=== PATIENT | female | born 1955 | race Caucasian/White ===

== ENCOUNTER → 2017-08-20 | Outpatient (CLI) | payer OTHER ==
[2017-05-08 12:58] VITALS: BMI 28.3
[~2017-08-20] MED LIST: ALBU8.5H12 IH; CETI10CA8 PO; CIPR-344 PO; CLON0.5T66 PO; CYC10 PO; DOXY-179 PO; FEXO30TA36 PO; FLUT12HF2 IH; FLUT16SP19; FLUT16SP20 NS; FLUT1DIS28 IH; HCTZ25 PO; HYDR-3078 PO; IBUP600T22 PO; MECL25TA9 PO; MONT10TA PO; MULT1TAB64 PO; OLO2ODPT OU; ONDA4TAB97 PO; PER PO; PROL80 PO; PROM-110 PO; PROP20SO PO; SCOT TD; TRAZ-156 PO; VEN75 PO; VORT20TA
== END ==
LOC: AUD 13:00
PROVIDERS: ATTEND Otolaryngology
DX: H93.13 Tinnitus, bilateral (principal); R42 Dizziness and giddiness
CPT/HCPCS: 92557; 92570

== ENCOUNTER → 2018-03-11 | Outpatient (CLI) | payer OTHER ==
[2017-05-08 12:58] VITALS: BMI 28.3
[~2018-03-11] MED LIST changes: +ASPI81TA94 PO; +ATOR20TA22 PO; +FES4PT PO; +LOSA50TA72 PO; +MV M PO; -TRAZ-156 PO; +TRAZ50TA34 PO; +UBID50TA3 PO; +[UNRECOGNIZED DRUG - CODE] PO
--- NOTE | 2018-03-11 09:47 | RADIOLOGY IMAGING REPORT ---
FACILITY: [facility] PATIENT NAME: Grace Mera : 1955 MR: [id number] V: [id number] EXAM DATE: ORDERING PHYSICIAN: JOB GOODWIN TECHNOLOGIST: Location: [facility] Patient: Grace Mera : 1955 Visit/Account:[id number] Date of Sevice: 03/11/2018 GALLBLADDER HISTORY: Ostium vomiting x2 months COMPARISON: None. FINDINGS: Gallbladder: Multiple large shadowing stones seen within the gallbladder. The gallbladder wall does not appear thickened measuring 2.8 mm. There was a positive Cifuentes sign by technologist notation Liver: Negative. Common duct: Normal, 3.9 mm diameter. Pancreas: Partially obscured by bowel, visualized aspects unremarkable. Right kidney: Right kidney appears unremarkable measuring 9.9 cm in length Upper abdominal aorta and IVC: Patent. Ascites: None visualized. IMPRESSION: Cholelithiasis and positive Cifuentes sign although no evidence of gallbladder wall thickening or biliar y ductal dilatation Report Dictated By: Alicia Lazar MD at 03/11/2018 9:42 AM Report E-Signed By: Alicia Lazar MD at 03/11/2018 9:44 AM WSN:[email or web address]
== END ==
LOC: US 01:56
PROVIDERS: ATTEND Nurse Practitioner Family
DX: K80.20 Calculus of gallbladder without cholecystitis without obstruction (principal); R19.8 Other specified symptoms and signs involving the digestive system and abdomen
CPT/HCPCS: 76705

== ENCOUNTER 2018-03-19 00:51 | Observation (INO) | payer OTHER ==
[~2018-03-19] VITALS: Ht 165.1 cm; Wt 73.5 kg
[2018-03-19] VITALS (15 sets, daily range): BP systolic 93–125; BP diastolic 51–74
[~2018-03-19 00:51] MED LIST changes: +ALBU8.5H IH; +ASPI-1471 PO; +FLUT15.88; +HYDR-2966 PO; +SCOP1PAT16 TD; +SUCR1TAB85 PO; +VORTIOXETINE PO
[2018-03-19 09:06] LABS: PLATELET COUNT, AUTOMATED 343 K/uL (150-450)
--- NOTE | 2018-03-19 10:03 | EKG ---
[place] [facility] [place] NAME: ELVIA HODGES : [id number] MR: [id number] V: [id number] EXAM DATE: ORDERING PHYSICIAN: THERESE DEL ANGEL TECHNOLOGIST: RICARDA Pedersen Reason : PREOP Blood Pressure : / mmHG Vent. Rate : 051 BPM Atrial Rate : 051 BPM P-R Int : 160 ms QRS Dur : 082 ms QT Int : 428 ms P-R-T Axes : 043 017 025 degrees QTc Int : 394 ms Sinus bradycardia Otherwise normal ECG No previous ECGs available Confirmed by NIKOLAY AMATO ([id number]) on 03/19/2018 3:43:21 PM Referred By: JOCELYN Confirmed By:NIKOLAY AMATO
[2018-03-19] MEDS ORDERED: DEXAMETHASONE SOD PHOS 10MG/ML ONE (10:13)
[2018-03-19] MEDS ORDERED: ONDANSETRON 4 MG/2 ML VIAL ONE (10:13)
[2018-03-19] MEDS ORDERED: fentaNYL CITR 100 MCG/2 ML AMP ONE ×3 (10:13→16:14)
[2018-03-19] MEDS ORDERED: PROPOFOL EMUL(*) 10MG/ML 20 ML 20 ML ONE (10:13)
[2018-03-19] MEDS ORDERED: MIDAZOLAM 2 MG/2 ML VIAL ONE (10:14)
[2018-03-19] MEDS ORDERED: PREGABALIN 150 MG CAPSULE PO ONE (11:00)
[2018-03-19] MEDS ORDERED: metroNIDAZOLE* 500MG/100ML BAG 100 ML IVPB ONE (11:00)
[2018-03-19] MEDS ORDERED: FAMOTIDINE 20 MG TAB PO ONE (11:00)
[2018-03-19] MEDS ORDERED: VANCOMYCIN 1 GM ADDVIAL 1 GM in NS(*) 0.9% 250 ML ADDVAN BAG 250 ML IVPB ONE (11:00)
[2018-03-19] MEDS ORDERED: NORMOSOL R SOLN(*) 1000 ML BAG 1,000 ML IV PRN (11:00)
[2018-03-19] MEDS ORDERED: MIDAZOLAM 2 MG/2 ML VIAL IVP PRN (11:00)
[2018-03-19] MEDS ORDERED: LIDOCAINE/SOD BICARB 8.4% SYR ID ONE (11:00)
[2018-03-19] MEDS ORDERED: ACETAMINOPHEN 500 MG TAB PO ONE (11:00)
[2018-03-19] MEDS ORDERED: INDOCYANINE GREEN 25 MG VIAL IVP ONE (11:00)
[2018-03-19] MEDS ORDERED: ROPIVACAINE 0.5% 20 ML VIAL ONE (12:22)
[2018-03-19] MEDS ORDERED: ROCURONIUM BROM 10 MG/ML 5 ML ONE (13:30)
[2018-03-19] MEDS ORDERED: SUGAMMADEX SOD 500 MG/5 ML SDV ONE (14:31)
[2018-03-19] MEDS ORDERED: NS(*) 0.9% 1000 ML BAG 1,000 ML IV PRN (15:01)
[2018-03-19] MEDS ORDERED: ONDANSETRON 4 MG/2 ML VIAL IVP PRN (15:05)
[2018-03-19] MEDS ORDERED: clonazePAM 0.5 MG TAB PO PRN (15:05)
[2018-03-19] MEDS ORDERED: MORPHINE 2 MG/ML SYR IVP PRN (15:05)
[2018-03-19] MEDS ORDERED: FLUSH 10 ML SYR IVP PRN (15:05)
[2018-03-19] MEDS ORDERED: MECLIZINE HCL 25 MG TAB PO PRN (15:05)
[2018-03-19] MEDS ORDERED: ALBUTEROL 8 GM INHALER INH SCH (15:05)
--- NOTE | 2018-03-19 15:28 | Post Operative Progress Note ---
Post Operative Progress Note Date: Mar 19, 2018 Time: 15:04 Surgeon: Anahi Dictation number: [id number] Anesthesia: GETA by Dr. Campo Pre-Op Diagnosis: Symptomatic Gallstones Post-Op Diagnosis: ARMANDO Findings: C/W dx Procedure(s): Robotic cholecystectomy Specimen Removed:(May be N/A): GB and contents Complications: None Fluids: See anesthesia record Estimated Blood Loss: minimal Date OP Note Dictated: Mar 19, 2018 Time OP Note Dictated: 15:05 NIKOLAY BANKS MD Mar 19, 2018 15:28
--- NOTE | 2018-03-19 16:13 | OPERATIVE REPORT 1 ---
EVENT DATE: March 19, 2018 SURGEON: Luis Angel Christian MD ANESTHESIOLOGIST: Anthony Campo MD ANESTHESIA: General endotracheal anesthesia. PREOPERATIVE DIAGNOSIS Symptoms gallstones. POSTOPERATIVE DIAGNOSIS Symptomatic gallstones. PROCEDURE PERFORMED Robotic cholecystectomy. COMPLICATIONS None. CONDITION Stable. BLOOD LOSS Minimal. FINDINGS The patient had a gallbladder that was full of stones. It did not appear to have acute inflammation. INDICATIONS This is a 62-year-old female who presented to my office with recurring and more persistent and severe right upper quadrant postprandial abdominal pain. She had a right upper quadrant ultrasound which revealed a gallbladder full of gallstones. He provided consent for robotic cholecystectomy. DESCRIPTION OF PROCEDURE The patient was brought to the operating room and placed supine on the operating table. General endotracheal anesthesia was administered, and her abdomen was prepped and draped in a sterile fashion. A timeout was completed. I injected the infraumbilical skin with 0.5% ropivacaine plain. I made a curvilinear smiley face-type incision in the infraumbilical rim. I dissected down through the dermis and subcutaneous fat, identified the midline fascia, and made a vertical incision in the midline fascia. I grasped the fascial edges with Carmen clamps and then bluntly entered the peritoneal cavity with my finger while I retracted the fascia towards the ceiling. I then placed two interrupted 0 Vicryl sutures transversely through the vertical fascial defect and inserted a 12 mm Gretchen robotic port into this wound and secured it in place with sutures. I insufflated the abdomen to a pressure of 15 mmHg and inserted the robotic camera in through this port. Gross inspection of the abdominal cavity did not reveal any obvious evidence of pathology, although there were some adhesions of omentum to the right side of her abdominal wall. There was no sign of interrelated injuries. Next, I placed an 8 mm robotic port in the right mid abdomen and placed two 8 mm ports in the left abdomen, one in the subcostal space in the anterior axillary line and one in the left mid abdomen. I then had the patient placed in reverse Trendelenburg and planed towards her left to remove the viscera from the right upper quadrant. I then brought in the robot, docked the robot, targeted it, and inserted the camera and instruments. Once this was completed, I scrubbed out and went to the console. I grasped the fundus of the gallbladder and retracted it toward the patient's right shoulder, and the infundibulum was retracted towards the patient 's right hip. I used the hook electrocautery to divide the peritoneum overlying the infundibulum and then up both the medial and lateral aspects of the gallbladder. This served to mobilize the infundibulum and open up the critical view. I then used the hook to bluntly dissect through the triangle of Calot and identified the cystic artery and cystic duct. These were cleaned off circumferentially for quite some distance. I used Firefly technology to identify the common bile duct throughout the surgery and make sure I was staying away from it. The common bile duct was easily visualized. I then clipped the artery proximally and distally and clipped the duct with three clips distally and one duct at the infundibulum-cystic duct junction, then divided the artery between clips and the duct adjacent to the infundibular clip. I then divided the posterior attachment to the gallbladder, it from the gallbladder fossa, and then placed the gallbladder in a surgical specimen retrieval bag and removed it from the abdomen at the umbilical port site. I inspected the gallbladder fossa as well as the cystic duct and artery stumps, and there was no bleeding or bile leaks. I then removed the instruments , undocked the robot, desufflated the abdomen, removed the ports, and then placed another [id number] 0 Vicryl suture through midline fascia. I tied all three of these down with good reapproximation of the fascial edges and no remaining fascial defect. I then closed the skin at each port site with 4-0 Monocryl subcuticular sutures. Skin was cleaned and dried, and Steri-Strips were applied, followed by sterile surgical dressings. The patient was awakened , extubated in the operating room, and transported to the recovery room in stable condition having tolerated the procedure without any apparent problems. SULAIMAN
[2018-03-19] MEDS ORDERED: ACETAMINOPHEN(*)1000 MG/100 ML 100 ML IVPB ONE (16:20)
[2018-03-19] MEDS ORDERED: CALCIUM CARBONATE 500 MG CHEW PO PRN (20:10)
[2018-03-19] MEDS: DOCUSATE SODIUM 100 MG CAP PO SCH (20:36)
[2018-03-19] MEDS: FAMOTIDINE 20 MG TAB PO SCH (20:36)
[2018-03-19] MEDS: PATIENT'S OWN MED INH SCH (21:00)
[2018-03-19] MEDS ORDERED: traZODone HCL 50 MG TAB PO SCH (21:00)
[2018-03-20 03:32] VITALS: BP 100/75
[2018-03-20] MEDS: PATIENT'S OWN MED INH SCH (05:32)
[2018-03-20] MEDS ORDERED: PER PO (06:25)
[2018-03-20] MEDS ORDERED: DOCU-202 PO (06:25)
--- NOTE | 2018-03-20 06:32 | Short(Outpt) Discharge Summary ---
Discharge Summary Reason for Hosp/Final Diag: (1) Cholecystitis, chronic Status: Chronic Hospital Course & Plan: Robotic cholecystectomy completed without problems on . Pt remained overnight to recover from surgery since she lives alone. She has done very well overnight and is tolerating a diet. Will d/c to home this morning. Departure Discharge to: Home, Self Care Discharge Instructions Home Meds Active Scripts Oxycodone/Acetaminophen (OXYCODONE/ACETAMINOPHEN 5MG/325 MG) 5 Mg/325 Mg Tab, 1- 2 TAB PO Q4H Y for MODERATE PAIN, #30 TAB 0 Refills Prov:LUIS ANGEL BANKS MD 03/20/18 Docusate Sodium (DOCUSATE SODIUM) 100 Mg Capsule, 1 CAP PO BID, #30 CAPSULE 0 Refills Prov:LUIS ANGEL BANKS MD 03/20/18 Scopolamine (Scopolamine) 1 Mg/3 Day Patch.td.3, 1 PATCH.72H TD ONCE, #[address] patch on your skin overlying the bone behind one of your ear lobes on 03/17/18, leave on for 3 days. Prov:LUIS ANGEL BANKS MD 03/16/18 Fluticasone Prop 50 Mcg Ns (FLONASE 50 MCG NS) 16 Gm [place].susp, 2 SPRAYS NA QDAY for 30 Days, #1 BOT 11 Refills Prov:ROZINA WONG JR, MD 08/08/17 Meclizine Hcl (MECLIZINE HCL) 25 Mg Tablet, 25 MG PO Q6H Y for DIZZINESS, #30 TAB Prov:ERICKSON WALKER 09/27/16 Reported Medications [vortioxetine] No Conflict Check, 20 MG PO QDAY Y for DEPRESSION 03/18/18 Albuterol Sulfate 90 Mcg/Act (PROAIR HFA 90 MCG/ACT) 8.5 Gm Hfa.aer.ad, 2 PUFF IH Q4-6H, INHALER 03/16/18 Hydrochlorothiazide (HYDROCHLOROTHIAZIDE) 25 Mg Tablet, 1 TAB PO QDAY, TAB 03/16/18 Fluticasone/Salmeterol (ADVAIR HFA 115-21 MCG INHALER) 12 Gm Hfa.aer.ad, 12 GM IH BID 03/16/18 Atorvastatin Calcium (LIPITOR) 20 Mg Tablet, 1 TAB PO QDAY, TAB 11/26/17 Montelukast Sodium (SINGULAIR) 10 Mg Tablet, 1 TAB PO QDAY, TAB 05/06/17 Ondansetron Hcl (ZOFRAN) 4 Mg Tablet, 4 MG PO PRN Y for NAUSEA, TAB 05/06/17 Propranolol Hcl (PROPRANOLOL HCL) 80 Mg Capcr, 80 MG PO DAILY 05/06/17 Trazodone Hcl (TRAZODONE HCL) 50 Mg Tablet, 50 MG PO QHS 02/05/14 Clonazepam (KLONOPIN) 0.5 Mg Tablet, 0.5 MG PO HS Y for ANXIETY, #10 TAB TAKE ONE TABLET BY MOUTH TWICE A DAY 02/05/14 Discontinued Reported Medications Fluticasone Propionate (Fluticasone Propionate) 50 Mcg/Actuation [place].susp, BID 03/16/18 Sucralfate (CARAFATE) 1 Gm Tablet, 1 GM PO 3-4XD 03/16/18 Aspirin (ASPIR 81) 81 Mg Tablet.dr, 81 MG PO QDAY, TAB 03/16/18 Mv-Mn/Iron/Fa/Lut/Lyc/Herb#175 (BIO-35 SOFTGEL) 1 Each Capsule, 1 EACH PO, CAPSULE 11/26/17 Ubidecarenone (COQ10) 50 Mg Tab.chew, 100 MG PO, TAB.CHEW 11/26/17 Cholecalciferol (Vitamin D3) (D3-50) Unknown Strength Capsule, PO, CAPSULE 11/26/17 Aspirin (ASPIRIN) 81 Mg Tab.chew, 81 MG PO QDAY, TAB.CHEW 11/26/17 Losartan Potassium (LOSARTAN POTASSIUM) 50 Mg Tablet, 50 MG PO QDAY 11/26/17 Fesoterodine Fumarate (TOVIAZ) 4 Mg Tabsr, 4 MG PO 11/26/17 Fluticasone/Salmeterol (ADVAIR HFA 115-21 MCG INHALER) 12 Gm Hfa.aer.ad, 12 GM IH BID 05/06/17 Vortioxetine Hydrobromide (Brintellix) 20 Mg Tablet 05/06/17 Follow up Referrals: General Surgery - 04/03/18 @ Surgery, General with Luis Angel Banks Md You have a follow up appointment scheduled with Dr. Banks on 04/03/18, at 1:30pm. Diet: Regular Activity: As Tolerated Special Instructions: You may remove the white surgical dressings on 03/21/18, then you can shower. After showering, leave the incisions open to air but leave the steristrips in place until they fall off on their own. Do not immerse the incisions for 2 weeks. LUIS ANGEL BANKS MD Mar 20, 2018 06:32
[2018-03-20 07:56] VITALS: BP 97/64
[2018-03-20] MEDS ORDERED: MONTELUKAST SODIUM 10 MG TAB PO SCH (09:00)
[2018-03-20] MEDS ORDERED: ATORVASTATIN 10 MG TAB PO SCH (09:00)
[2018-03-20] MEDS ORDERED: FLUTICASONE PROP 0.05% 16 GM SCH (09:00)
[2018-03-20] MEDS ORDERED: HYDROCHLOROTHIAZIDE 25 MG TAB PO SCH (09:00)
[2018-03-20] MEDS ORDERED: PROPRANOLOL HCL LA 80 MG CAPCR PO SCH (09:00)
[2018-03-20] MEDS: FAMOTIDINE 20 MG TAB PO SCH (09:30)
[2018-03-20] MEDS: DOCUSATE SODIUM 100 MG CAP PO SCH (09:31)
[2018-03-20 09:47] VITALS: BP 101/56
[2018-03-20 10:55] VITALS: BP 106/53
[2018-03-20 13:48] VITALS: Ht 165.1 cm; Wt 73.5 kg
== END 2018-03-20 06:24 | disposition home or self-care (01) ==
LOC: OR 00:51 → MED 17:39 → INTOOBSV 17:39
PROVIDERS: ADMIT Surgery; ATTEND Surgery
DX: K80.10 Calculus of gallbladder with chronic cholecystitis without obstruction (principal); I10 Essential (primary) hypertension; J45.909 Unspecified asthma, uncomplicated; E06.9 Thyroiditis, unspecified; F32.9 Major depressive disorder, single episode, unspecified; E78.5 Hyperlipidemia, unspecified; Z87.891 Personal history of nicotine dependence
CPT/HCPCS: 36415; 47562; 82248; 83690; 85025; 88304; 93005; 94640; G0378; J0131; J1100; J2250; J2405; J2704; J2795; J3010; J3370; J3490; J7050; S2900; 82040; 82247; 82310; 82374; 82435; 82565; 82947; 84075; 84132; 84155; 84295; 84450; 84460; 84520; J3535

== ENCOUNTER → 2018-10-12 | Outpatient (REF) | payer OTHER ==
[2018-03-20 13:48] VITALS: BMI 27.0
[~2018-10-12] MED LIST changes: +DOCU-202 PO; -LOSA50TA72 PO; +LOSA50TA80 PO; +PANT20TA27 PO; +PANT40TA65 PO
[2018-10-12 13:37] LABS: PLATELET COUNT, AUTOMATED 360 K/uL (150-450)
[2018-10-12 13:44] LABS: LDL CHOLESTEROL 51 mg/dl
== END ==
PROVIDERS: ATTEND Family Medicine
DX: R06.02 Shortness of breath (principal)
CPT/HCPCS: 82040; 82247; 82310; 82374; 82435; 82465; 82565; 82947; 83718; 84075; 84132; 84155; 84295; 84450; 84460; 84478; 84484; 84520; 85025; 85379; 86140